=== PATIENT | female | born 1995 | race Caucasian/White ===

== ENCOUNTER 2021-06-23 19:09 | Observation (INO) | payer BC ==
[~2021-06-23] VITALS: Ht 150 cm; Wt 126.2 kg
[2021-06-23] MEDS ORDERED: PIPERACILLIN SODIUM/TAZOBACTAM 4.5 GM in NS (IVPB) 100 ML IV ONE (20:00)
[2021-06-23] MEDS ORDERED: VANCOMYCIN INJECTION 1,000 MG in NS (IVPB) 250 ML IV ONE (20:00)
--- NOTE | 2021-06-23 20:04 | ED Integumentary General ---
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 She states she has been dealing with skin infections for the past 2 months. She has been on intermittent antibiotics doxycycline, Rocephin and Keflex with very minimal improvement. Worsening rash over the past 2 days with purulent drainage swelling and increased pain. Patient has been on Accutane in the past to help with her skin condition but not currently take the medication secondary to wanting to start a family. She denies diabetes. She does report some sharp pains in the lower extremities which appears to be chronic. She denies any fever, chest pain, shortness of breath, nausea, vomiting. She does see a sales account director in [facility]. Allergies and Home Medications Allergies Coded Allergies: No Known Drug Allergies (Unverified , 06/23/21) Patient Home Medication List Home Medication List Reviewed: Yes Review of Systems Review of Systems Constitutional: No chills, No diaphoresis EENTM: No hearing loss, No blurred vision, No double vision Cardiovascular: No chest pain Gastrointestinal: No abdominal pain, No diarrhea, No nausea, No vomiting Genitourinary: No decreased output, No discharge Musculoskeletal: No back pain, No joint pain Skin: change in color, lesions, pruritus, rash All Other Systems Reviewed Negative Unless Noted: Yes Physical Exam Vital Signs Vital Signs - First Documented 06/23/21 19:55 Temp 35.9 Pulse 90 Resp 20 B/P (MAP) 127/75 (92) Pulse Ox 95 Capillary Refill : General Appearance: WD/WN, no apparent distress HEENT: PERRL/EOMI, normal ENT inspection, TMs normal, pharynx normal Neck: non-tender, full range of motion, supple Cardiovascular: regular rate, rhythm, no edema, no gallop, no JVD Respiratory: chest non-tender, lungs clear, normal breath sounds Gastrointestinal: normal bowel sounds, non tender, soft Back: normal inspection, no CVA tenderness Extremities: other (Bilateral leg swelling and redness. Purulent rash with crusting. 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 Purulent papular crusty rash to lower extremities with surrounding redness and swelling.) Progress/Results/Core Measures Results/Orders Lab Results Laboratory Tests Test 06/23/21 20:05 06/23/21 20:20 Range/Units Urine Color YELLOW Urine Clarity SL CLOUDY Urine pH 6.0 5-9 Urine Specific [place] >=1.030 1.016-1.022 Urine Protein NEGATIVE NEGATIVE Urine Glucose (UA) NEGATIVE NEGATIVE Urine Ketones NEGATIVE NEGATIVE Urine Nitrite NEGATIVE NEGATIVE Urine Bilirubin NEGATIVE NEGATIVE Urine Urobilinogen 0.2 < = 1.0 MG/DL Urine Leukocyte Esterase NEGATIVE NEGATIVE Urine RBC (Auto) NEGATIVE NEGATIVE Urine RBC RARE /HPF Urine WBC 0-2 /HPF Urine Squamous Epithelial Cells 10-25 H /HPF Urine Crystals NONE /LPF Urine Bacteria MODERATE H /HPF Urine Casts NONE /LPF Urine Mucus MODERATE H /LPF Urine Culture Indicated NO Urine Test NEGATIVE NEGATIVE White Blood Count 9.3 4.3-11.0 10^3/uL Red Blood Count 4.50 3.80-5.11 10^6/uL Hemoglobin 13.0 11.5-16.0 g/dL Hematocrit 40 35-52 % Mean Corpuscular Volume 88 80-99 fL Mean Corpuscular Hemoglobin 29 25-34 pg Mean Corpuscular Hemoglobin Concent 33 32-36 g/dL Red Cell Distribution Width 14.3 10.0-14.5 % Platelet Count 366 130-400 10^3/uL Mean Platelet Volume 9.5 9.0-12.2 fL Immature Granulocyte % (Auto) 0 % Neutrophils (%) (Auto) 55 42-75 % Lymphocytes (%) (Auto) 32 12-44 % Monocytes (%) (Auto) 7 0-12 % Eosinophils (%) (Auto) 5 0-10 % Basophils (%) (Auto) 1 0-10 % Neutrophils # (Auto) 5.1 1.8-7.8 10^3/uL Lymphocytes # (Auto) 2.9 1.0-4.0 10^3/uL Monocytes # (Auto) 0.6 0.0-1.0 10^3/uL Eosinophils # (Auto) 0.5 H 0.0-0.3 10^3/uL Basophils # (Auto) 0.1 0.0-0.1 10^3/uL Immature Granulocyte # (Auto) 0.0 0.0-0.1 10^3/uL Sodium Level 142 135-145 MMOL/L Potassium Level 3.7 3.6-5.0 MMOL/L Chloride Level 106 98-107 MMOL/L Carbon Dioxide Level 24 21-32 MMOL/L Anion Gap 12 5-14 MMOL/L Blood Urea Nitrogen 13 7-18 MG/DL Creatinine 1.05 0.60-1.30 MG/DL Estimat Glomerular Filtration Rate 76 BUN/Creatinine Ratio 12 Glucose Level 74 70-105 MG/DL Lactic Acid Level 1.39 0.50-2.00 MMOL/L Calcium Level 8.8 8.5-10.1 MG/DL Corrected Calcium 8.9 8.5-10.1 MG/DL Total Bilirubin 0.3 0.1-1.0 MG/DL Aspartate Amino Transf (AST/SGOT) 29 5-34 U/L Alanine Aminotransferase (ALT/SGPT) 22 0-55 U/L Alkaline Phosphatase 61 40-136 U/L C-Reactive Protein High Sensitivity 1.90 H 0.00-0.50 MG/DL Total Protein 7.7 6.4-8.2 GM/DL Albumin 3.9 3.2-4.5 GM/DL Serum Test, Qualitative NEGATIVE NEGATIVE My Orders Orders - SHERMAN FLORENCE Cbc With Automated Diff (06/23/21 19:59) Comprehensive Metabolic Panel (06/23/21 19:59) Blood Culture (06/23/21 19:59) Lactic Acid Analyzer (06/23/21 19:59) Hs C Reactive Protein (06/23/21 19:59) Piperacillin Sodium/Tazobactam (Zosyn Vi (06/23/21 20:00) Vancomycin Injection (Vancomycin Injecti (06/23/21 20:00) Wound Culture (06/23/21 19:59) Hcg,Qualitative Serum (06/23/21 20:04) Ua Culture If Indicated (06/23/21 20:04) Hcg,Qualitative Urine (06/23/21 20:11) Medications Given in ED Current Medications Medications Dose Ordered Sig/Christina Route Start Time Stop Time Status Last Admin Dose Admin Piperacillin Sod/ Tazobactam Sod 4.5 gm/Sodium Chloride 100 ml @ 200 mls/hr ONCE ONCE IV 06/23/21 20:00 06/23/21 20:29 DC 06/23/21 21:02 200 MLS/HR Vital Signs/I&O 06/23/21 06/23/21 19:55 20:31 Temp 35.9 Pulse 90 Resp 20 B/P (MAP) 127/75 (92) Pulse Ox 95 Departure Communication (PCP) Patient with ongoing cellulitis to the lower extremities. She is failed outpatient therapy. History of Darier disease and MRSA. She has crusting, redness and swelling of the lower extremity. Sloughing of the skin. She was afebrile. Normal white blood count. Slight elevated CRP. Was started on vancomycin and Zosyn here. She would likely benefit with IV antibiotics and wound care involvement. Patient was admitted to Dr. Lake the hospitalist accepts patient. Recommend Zosyn and vancomycin for IV antibiotics. Wound care performed here to help prevent the skin from ripping against the sheets. Impression Primary Impression: Cellulitis Disposition: ADMITTED INPATIENT Condition: Stable Admissions Decision to Admit Reason: Admit from ER (General) Decision to Admit/Date: June 23, 2021 Time/Decision to Admit Time: 19:00 Departure-Patient Inst. Referrals: NO,LOCAL PHYSICIAN (PCP/Family) Primary Care Physician SHERMAN FLORENCE June 23, 2021 20:04
[2021-06-23 20:10] LABS: BILIRUBIN,URINE NEGATIVE (NEGATIVE); CLARITY,URINE SL CLOUDY; COLOR,URINE YELLOW; GLUCOSE, URINE (UA) NEGATIVE (NEGATIVE); KETONES,URINE NEGATIVE (NEGATIVE); LEUKOCYTE ESTERASE ,URINE NEGATIVE (NEGATIVE); NITRITE,URINE NEGATIVE (NEGATIVE); PROTEIN,URINE NEGATIVE (NEGATIVE)
[2021-06-23 20:19] LABS: BACTERIA,URINE MODERATE /HPF; RBC,URINE RARE /HPF; WBC,URINE 0-2 /HPF
[2021-06-23 20:34] LABS: BASOPHILS # (AUTO) 0.1 10^3/uL (0.0-0.1); BASOPHILS % (AUTO) 1 % (0-10); EOSINOPHILS # (AUTO) 0.5 10^3/uL (0.0-0.3); EOSINOPHILS % (AUTO) 5 % (0-10); HEMATOCRIT 40 % (35-52); LYMPHOCYTES # (AUTO) 2.9 10^3/uL (1.0-4.0); LYMPHOCYTES % (AUTO) 32 % (12-44); MEAN CORPUSCULAR HEMOGLOBIN 29 pg (25-34); MEAN CORPUSCULAR HGB CONC 33 g/dL (32-36); MEAN CORPUSCULAR VOLUME 88 fL (80-99); MEAN PLATELET VOLUME 9.5 fL (9.0-12.2); MONOCYTES # (AUTO) 0.6 10^3/uL (0.0-1.0); MONOCYTES % (AUTO) 7 % (0-12); NEUTROPHILS # (AUTO) 5.1 10^3/uL (1.8-7.8); NEUTROPHILS % (AUTO) 55 % (42-75); PLATELET COUNT 366 10^3/uL (130-400); WHITE BLOOD COUNT 9.3 10^3/uL (4.3-11.0)
[2021-06-23 20:51] LABS: ALBUMIN 3.9 GM/DL (3.2-4.5); POTASSIUM 3.7 MMOL/L (3.6-5.0)
[2021-06-23 20:52] LABS: CALCIUM 8.8 MG/DL (8.5-10.1)
[2021-06-23 20:54] LABS: TOTAL PROTEIN 7.7 GM/DL (6.4-8.2)
[2021-06-23 20:55] LABS: BILIRUBIN,TOTAL 0.3 MG/DL (0.1-1.0)
[2021-06-23 20:57] LABS: CREATININE SERUM 1.05 MG/DL (0.60-1.30)
[2021-06-23] MEDS ORDERED: fentaNYL INJ 100 MCG/2 ML AMP IVP STA (21:29)
[2021-06-23 22:14] VITALS: BP 114/66
[2021-06-23] MEDS ORDERED: VANCOMYCIN 1500 MG/NS 500 ML IVPB IV ONE ×2 (23:30)
[2021-06-23] MEDS ORDERED: VANCOMYCIN 1000 MG/VIAL ONE (23:38)
[2021-06-23] MEDS ORDERED: NS IV 500 ML 500 ML ONE (23:38)
[2021-06-23] MEDS ORDERED: VANCOMYCIN 500 MG/VIAL IV ONE (23:38)
[2021-06-24] VITALS (7 sets, daily range): BP systolic 95–129; BP diastolic 50–80
[2021-06-24] MEDS: KETOROLAC 15 MG/ML VIAL IV PRN ×3 (00:09→22:20)
[2021-06-24] MEDS ORDERED: PIPERACILLIN SODIUM/TAZOBACTAM 4.5 GM in NS (IVPB) 100 ML IV SCH (03:00)
[2021-06-24] MEDS: CATHETER FLUSH 10 ML SYR IVP SCH ×3 (06:05→19:56)
[2021-06-24] MEDS: ONDANSETRON 4 MG/2 ML (SDV) Z0FRAN IVP PRN ×2 (08:01→16:56)
[2021-06-24] MEDS ORDERED: TR1C15 TOP (10:20)
[2021-06-24] MEDS ORDERED: HYDR-700 PO (10:20)
[2021-06-24] MEDS ORDERED: SERT-414 PO (10:20)
[2021-06-24] MEDS ORDERED: BUSP10TA95 PO (10:20)
[2021-06-24] MEDS ORDERED: PREN-51 PO (10:20)
[2021-06-24] MEDS ORDERED: IBUP-2185 PO (10:20)
[2021-06-24] MEDS ORDERED: CHOL10004 PO (10:20)
--- NOTE | 2021-06-24 11:17 | History & Physical-Hospitalist ---
History of Present Illness HPI/Chief Complaint Pt is a 25yoCF with a PMH of Darier disease who presented to the emergency department due to infected legs. She states she chronically deals with cellulitis and infections in her legs and had been seeing a fork truck driver near [place] for this. She was on Accutane which was controlling her symptoms well but she got off of it as she was hoping to get . Since that time she has had multiple infections and was on Keflex for 1 month. Last week she was treated with doxycycline and was doing well. Her last dose was on June 21 and then on the fourth she started to notice more weeping from her legs. This wor sened yesterday prompting her to seek evaluation in the emergency department. She was admitted for IV antibiotics. She reports feeling better today and is discharge home tomorrow. Source: patient Date Seen 06/24/21 Time Seen by a Provider: 09:45 Attending Physician Jarad Lake MD PCP No,Local Physician Referring Physician Date of Admission June 23, 2021 at 21:00 Home Medications & Allergies Home Medications Reviewed patient Home Medication Reconciliation performed by pharmacy medication reconciliations analytical lab technician and/or nursing. Patients Allergies have been reviewed. Allergies Allergies Coded Allergies No Known Drug Allergies (Unverified06/23/21) Past Xcuntwa-Flavtl-Djxnkn Hx Patient Social History Marrital Status: Employed/Student: employed Tobacco Use?: No Smoking Status: Never a Smoker Use of E-Cig and/or Vaping dev: No Substance use?: No Alcohol Use?: No Pt feels they are or have been: No Immunizations Up To Date First/Initial COVID19 Vaccinat: NO COVID VACCINE Current Status status: No status: No Advance Directives: No Communicates: Verbally Primary Language: [place]se Preferred Spoken Language: [place]orese Is interpretation needed?: No Past Medical History Darier Disease Family Medical History Reviewed Nursing Family Hx No Pertinent Family Hx Review of Systems Constitutional: No fever EENTM: no symptoms reported Respiratory: no symptoms reported Cardiovascular: no symptoms reported Gastrointestinal: no symptoms reported Genitourinary: no symptoms reported Musculoskeletal: no symptoms reported Skin: see HPI Psychiatric/Neurological: No Symptoms Reported Physical Exam Physical Exam Vital Signs Vital Signs - First Documented 06/23/21 06/23/21 19:55 22:14 Temp 35.9 Pulse 90 Resp 20 B/P (MAP) 127/75 (92) Pulse Ox 95 O2 Delivery Room Air Capillary Refill : Less Than 3 Seconds Height, Weight, BMI Height: '" Weight: lbs. oz. kg; 56.08 BMI Method: General Appearance: No Apparent Distress, WD/WN, Obese HEENT: PERRL/EOMI, Moist Mucous Membranes Neck: Normal Inspection, Supple Respiratory: Lungs Clear, No Accessory Muscle Use, No Respiratory Distress Cardiovascular: Regular Rate, Rhythm, No Murmur Gastrointestinal: Normal Bowel Sounds, Non Tender, Soft Extremity: Normal Capillary Refill, Other (lower extremities with dry and cracked skin and what appears to be thickened epidermis, weeping at cracks, overall erythematous appearance with some warmth) Neurologic/Psychiatric: Alert, Oriented x3, Normal Mood/Affect; No Aphasia, No Facial Droop Skin: Other (see extremity exam) Results Results/Procedures Labs Laboratory Tests 06/23/21 20:20 Patient resulted labs reviewed. Assessment/Plan Admission Diagnosis Cellulitis Admission Status: Observation Assessment and Plan Cellulitis Darier Disease Continue on IV abx Await cultures from ER Wound care consult Patient is agreeable to staying here for treatment with wound care before returning to home in [facility] Hopefully home tomorrow if doing well DVT ppx: Lovenox Diagnosis/Problems Diagnosis/Problems (1) Darier disease Status: Chronic (2) Cellulitis Status: Acute Qualifiers: Site of cellulitis: extremity Site of cellulitis of extremity: lower extremity Laterality: left Qualified Codes: L03.116 - Cellulitis of left lower limb EJ ALLEN MD June 24, 2021 11:17
[2021-06-24] MEDS ORDERED: HYPOCHLOROUS ACID/NaCl (VASHE) 250 ML IR PRN (11:30)
[2021-06-24] MEDS ORDERED: TRIAMCINOLONE 0.1% CR (KENALOG) 15 GM TUBE TOP PRN (11:30)
[2021-06-24] MEDS ORDERED: PATIENT MAY USE OWN MEDS, ALL MC SCH (11:30)
[2021-06-24] MEDS: VANCOMYCIN 1 GM/NS 250 ML IVPB IV SCH ×4 (11:49→23:44)
[2021-06-24] MEDS: ENOXAPARIN 40 MG/0.4 ML (LOVENOX) SYR SQ SCH (11:49)
[2021-06-24] MEDS: LACTOBACILLUS ACIDOPHILUS (PROBIOTIC) CAPSULE PO SCH ×2 (12:56→16:56)
[2021-06-24] MEDS: PIPERACILLIN SODIUM/TAZOBACTAM 4.5 GM in NS (IVPB) 100 ML IV SCH ×2 (12:57→21:00)
--- NOTE | 2021-06-24 13:44 | Wound Care Assessment ---
Wound Care Assessment Date Seen by Provider: June 24, 2021 Time Seen by Provider: 13:35 Chief Complaint Bilateral lower extremity cellulitis with weeping wounds HPI This pleasant 25 year old patient was admitted to the hospital with bilateral cellulitis. 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 She Has been treated by dermatology in the past with accutane with improvement in symptoms but is off this medication currently as she hopes to get in the near future. Sandee is also morbidly obese which likely contributes to her edema in addition to underlying infection. Her wound culture is preliminary but suspicious for pseudomonas. She has had whirlpool therapy suggested to her in the past. I would be hesitant to use whirlpool with current infection (it is no longer commonly used in chronic wound care practices). I agree with targeted antibiotic therapy. Once her wounds are healed and infection resolved, topical steroids/retinoids would be an option but I will defer this to her parquet floor layer's capable hands (she already has follow up arranged). I do think that Vashe soaks with gentle scrubbing would be a good option currently. Barrier ointment in periwound to protect from moisture and xeroform with gauze and roller gauze. Tubigrip to assist in keeping dressings in place. Elevation is certainly advisable as well as weight loss. Darier's disease Smoking Status: Never a Smoker Review of Systems General: Other (Obesity) Exam Vital Signs Date Time Temp Pulse Resp B/P (MAP) Pulse Ox O2 Delivery O2 Flow Rate FiO2 06/24/21 12:00 36.3 78 18 129/75 (93) 99 Room Air Capillary Refill : Less Than 3 Seconds General Appearance: WD/WN, no apparent distress, obese Cardiovascular: other (Edema) Extremities: pedal edema Neurologic/Psychiatric: alert, normal mood/affect, oriented x 3 Skin Problem Location: lower extremities Skin Character: drainage, erythema, thickening Bilateral lower extremities with eller/brown hyperkeratosis. Several areas with greasy plaques. Numerous partial thickness open areas with serous weeping. Underyling erythema consistent with cellulitis. Results Laboratory Tests 06/23/21 20:05: Urine Color YELLOW, Urine Clarity SL CLOUDY, Urine pH 6.0, Urine Specific [place] >=1.030, Urine Protein NEGATIVE, Urine Glucose (UA) NEGATIVE, Urine Ketones NEGATIVE, Urine Nitrite NEGATIVE, Urine Bilirubin NEGATIVE, Urine Urobilinogen 0.2, Urine Leukocyte Esterase NEGATIVE, Urine RBC (Auto) NEGATIVE, Urine RBC RARE, Urine WBC 0-2, Urine Squamous Epithelial Cells 10-25H, Urine Crystals NONE, Urine Bacteria MODERATEH, Urine Casts NONE, Urine Mucus MODERATEH , Urine Culture Indicated NO, Urine Test NEGATIVE 06/23/21 20:20: White Blood Count 9.3, Red Blood Count 4.50, Hemoglobin 13.0, Hematocrit 40, Mean Corpuscular Volume 88, Mean Corpuscular Hemoglobin 29, Mean Corpuscular Hemoglobin Concent 33, Red Cell Distribution Width 14.3, Platelet Count 366, Mean Platelet Volume 9.5, Immature Granulocyte % (Auto) 0, Neutrophils (%) (Auto) 55, Lymphocytes (%) (Auto) 32, Monocytes (%) (Auto) 7, Eosinophils (%) (Auto) 5, Basophils (%) (Auto) 1, Neutrophils # (Auto) 5.1, Lymphocytes # (Auto) 2.9, Monocytes # (Auto) 0.6, Eosinophils # (Auto) 0.5H, Basophils # (Auto) 0.1, Immature Granulocyte # (Auto) 0.0, Sodium Level 142, Potassium Level 3.7, Chloride Level 106, Carbon Dioxide Level 24, Anion Gap 12, Blood Urea Nitrogen 13, Creatinine 1.05, Estimat Glomerular Filtration Rate 76, BUN/Creatinine Ratio 12, Glucose Level 74, Lactic Acid Level 1.39, Calcium Level 8.8, Corrected Calcium 8.9, Total Bilirubin 0.3, Aspartate Amino Transf (AST/SGOT) 29, Alanine Aminotransferase (ALT/SGPT) 22, Alkaline Phosphatase 61, C-Reactive Protein High Sensitivity 1.90H, Total Protein 7.7, Albumin 3.9, Serum Test, Qualitative NEGATIVE 06/24/21 12:30: D-Dimer 1.05H Microbiology 06/23/21 Gram Stain, Resulted Pending 06/23/21 Wound Culture - Preliminary, Resulted Gram Negative Bacillus 1 Gram Negative Bacillus 1#2 Microbiology 06/23/21 Gram Stain, Resulted Pending 06/23/21 Wound Culture - Preliminary, Resulted Gram Negative Bacillus 1 Gram Negative Bacillus 1#2 Assessment/Plan/Dx Assessment: 1. Cellulitis (bilateral) 2. Darier's disease 3. Morbid obesity Plan: 1. Agree with antibiotic therapy to be targeted to wound culture once finalized 2. Elevation of bilateral lower extremities above level of heart as much as possible 3. Vashe soaks to bilateral lower extremities daily. Gently scrub with wash cloth (as tolerated due to pain) daily following Vashe soaks 4. Barrier ointment to periwound 5. Apply Xeroform to open areas, cover with roller gauze and secure with medipore tape daily. May use tubigrip to secure dressings further if needed 6. I would not advise whirlpool treatment with active infection (especially with pseudomonas) 7. I would not advise topical steroids with active infection and open wounds. Once cellulitis treated and wounds improve, defer topical steroids or oral/topical retinoids to parquet floor layer for initiation. MIGUEL ÁNGEL REYNOLDS MD June 24, 2021 13:44
[2021-06-24] MEDS ORDERED: ACETAMINOPHEN 500 MG TAB (TYLENOL) PO PRN (18:30)
[2021-06-24] MEDS: busPIRone 10 MG (BUSPAR) TAB PO SCH (19:54)
[2021-06-24] MEDS ORDERED: hydrOXYzine (VISTARIL/ATARAX) 25 MG capsule/tablet PO SCH (21:00)
[2021-06-24] MEDS ORDERED: NON-FORMULARY MEDICATION 1 EA EA (Hydroxyzine HCl 25 MG) PO SCH (21:00)
[2021-06-24] MEDS ORDERED: SERTRALINE 100 MG (ZOLOFT) TAB PO SCH (21:00)
[2021-06-25 03:44] VITALS: BP 107/63
[2021-06-25] MEDS: PIPERACILLIN SODIUM/TAZOBACTAM 4.5 GM in NS (IVPB) 100 ML IV SCH ×3 (05:43→12:38)
[2021-06-25] MEDS: CATHETER FLUSH 10 ML SYR IVP SCH ×2 (05:44→12:24)
[2021-06-25] MEDS: ONDANSETRON 4 MG/2 ML (SDV) Z0FRAN IVP PRN (05:52)
[2021-06-25 05:59] LABS: HEMATOCRIT 36 % (35-52); HEMOGLOBIN 11.8 g/dL (11.5-16.0); MEAN CORPUSCULAR HEMOGLOBIN 29 pg (25-34); MEAN CORPUSCULAR HGB CONC 33 g/dL (32-36); MEAN CORPUSCULAR VOLUME 89 fL (80-99); MEAN PLATELET VOLUME 9.9 fL (9.0-12.2); PLATELET COUNT 289 10^3/uL (130-400); WHITE BLOOD COUNT 9.3 10^3/uL (4.3-11.0)
[2021-06-25 06:10] LABS: POTASSIUM 4.1 MMOL/L (3.6-5.0)
[2021-06-25 06:11] LABS: CALCIUM 9.2 MG/DL (8.5-10.1)
[2021-06-25 06:15] LABS: CREATININE SERUM 1.91 MG/DL (0.60-1.30)
[2021-06-25 07:32] VITALS: BP 125/84
[2021-06-25] MEDS: busPIRone 10 MG (BUSPAR) TAB PO SCH (08:28)
[2021-06-25] MEDS: LACTOBACILLUS ACIDOPHILUS (PROBIOTIC) CAPSULE PO SCH ×2 (08:28→12:21)
[2021-06-25] MEDS ORDERED: VITAMIN D3 25 MCG (1,000 UNITS) TABLET PO SCH (09:00)
[2021-06-25] MEDS ORDERED: TROUGH ORDER-PHARMACY XX ONE (11:00)
[2021-06-25] MEDS ORDERED: BISM1BAN TP (11:35)
[2021-06-25] MEDS ORDERED: CEFD300C3 PO (11:35)
[2021-06-25] MEDS ORDERED: ACHD5005 PO (11:35)
[2021-06-25] MEDS ORDERED: SODI475I IR (11:35)
[2021-06-25] MEDS ORDERED: LEVO750T39 PO (11:35)
--- NOTE | 2021-06-25 11:39 | Discharge Inst-Simple/Standard ---
Discharge Inst-Standard Discharge Medications New, Converted or Re-Newed RX: Transmitted to Pharmacy Patient Instructions/Follow Up Plan of Care/Instructions/FU: Please continue to take your medications as written. Please follow up with your PCP to follow up this hospital stay. Activity as Tolerated: Yes Discharge Diet: No Restrictions Return to The Hospital For: Chest pain, shortness of breath, fever, increasing drainage on your legs or redness, if you feel you are getting worse. EJ ALLEN MD June 25, 2021 11:39
--- NOTE | 2021-06-25 11:42 | Discharge Summary ---
Diagnosis/Chief Complaint Date of Admission June 23, 2021 at 21:00 Date of Discharge Discharge Date: June 25, 2021 Admission Diagnosis Cellulitis Primary Care No,Local Physician Discharge Diagnosis (1) Darier disease Status: Chronic (2) Cellulitis Status: Acute Discharge Summary Procedures/Consulations Wound Care- Dr Vela Discharge Physical Exam Allergies: Coded Allergies: No Known Drug Allergies (Unverified , 06/23/21) Vitals & I&Os Vital Signs Date Time Temp Pulse Resp B/P (MAP) Pulse Ox O2 Delivery O2 Flow Rate FiO2 06/25/21 07:32 36.5 88 20 125/84 (98) 92 Room Air General Appearance: No Apparent Distress, Obese Respiratory: Lungs Clear Cardiovascular: Regular Rate, Rhythm Hospital Course Patient was admitted to the hospital due to cellulitis of her lower extremities from complications of Darier disease. She was treated with IV antibiotics and did well. She was transitioned to oral antibiotics per cultures. She was seen by wound care and will follow-up with them as an outpatient. Labs (last 24 hrs) Laboratory Tests 06/24/21 12:30: D-Dimer 1.05H 06/25/21 05:38: White Blood Count 9.3, Red Blood Count 4.07, Hemoglobin 11.8, Hematocrit 36, Mean Corpuscular Volume 89, Mean Corpuscular Hemoglobin 29, Mean Corpuscular Hemoglobin Concent 33, Red Cell Distribution Width 14.2, Platelet Count 289, Mean Platelet Volume 9.9, Sodium Level 143, Potassium Level 4.1, Chloride Level 110H, Carbon Dioxide Level 23, Anion Gap 10, Blood Urea Nitrogen 17, Creatinine 1.91H, Estimat Glomerular Filtration Rate 37, BUN/Creatinine Ratio 9, Glucose Level 94, Calcium Level 9.2 06/25/21 11:00: Vancomycin Level Trough 23.9H Microbiology 06/23/21 Blood Culture - Preliminary, Resulted No growth 06/23/21 Gram Stain - Final, Resulted 06/23/21 Wound Culture - Preliminary, Resulted Mixed Bacterial Aggie Gram Negative Bacillus 1 Gram Negative Bacillus 1#2 Patient resulted labs reviewed. Pending Labs Laboratory Tests 06/25/21 05:38: White Blood Count 9.3, Red Blood Count 4.07, Hemoglobin 11.8, Hematocrit 36, Mean Corpuscular Volume 89, Mean Corpuscular Hemoglobin 29, Mean Corpuscular Hemoglobin Concent 33, Red Cell Distribution Width 14.2, Platelet Count 289, Mean Platelet Volume 9.9, Sodium Level 143, Potassium Level 4.1, Chloride Level 110, Carbon Dioxide Level 23, Anion Gap 10, Blood Urea Nitrogen 17, Creatinine 1.91, Estimat Glomerular Filtration Rate 37, BUN/Creatinine Ratio 9, Glucose Level 94, Calcium Level 9.2 06/25/21 11:00: Vancomycin Level Trough 23.9 Discussion & Recommendations Discharge Planning: >30 minutes discharge planning Discharge Home Medications: Active Scripts Active Hydrocodone-Acetamin 5-325 mg (Hydrocodone/Acetaminophen) 5 Mg-325 Mg Tablet 1 Tab PO Q4H PRN Xeroform Petrolatum Dress (Bismuth Tribromoph/Petrolatum) 4" X 4" Bandage Each TP BID Place twice a day on wounds after cleansing Cefdinir 300 Mg Capsule 300 Mg PO BID Levofloxacin 750 Mg Tablet 750 Mg PO DAILY Vashe Wound Therapy Solution (Sodium Chlor/Hypochlorous Acid) 0.033 % Irrig.soln 0 Ml IR DAILY PRN Reported Triamcinolone Acetonide 0.1% Cream (Triamcinolone Acet) 0.1 % Cr 1 Applic TOP UD PRN Vitamin D3 (Cholecalciferol (Vitamin D3)) 25 Mcg (1000 Unit) Tablet 25 Mcg PO DAILY Prenatabs Rx Tablet ( Vit #76/Iron,Carb/FA) 29 Mg Iron-1 Mg Tablet 1 Each PO DAILY Ibuprofen 200 Mg Capsule 400-600 Mg PO Q8H PRN Hydroxyzine HCl 25 Mg Tablet 25 Mg PO HS Sertraline HCl 100 Mg Tablet 100 Mg PO HS Buspirone HCl 10 Mg Tablet 20 Mg PO BID TAKES 2 (10MG) TABS Instructions to patient/family Please see electronic discharge instructions given to patient. Problem Qualifiers (1) Cellulitis: Site of cellulitis: extremity Site of cellulitis of extremity: lower extremity Laterality: left Qualified Codes: L03.116 - Cellulitis of left lower limb EJ ALLEN MD June 25, 2021 11:42
[2021-06-25 11:52] VITALS: BP 125/84
[2021-06-25] MEDS ORDERED: VANCOMYCIN 1 GM/NS 250 ML IVPB IV SCH ×4 (12:00→23:55)
[2021-06-25] MEDS: ENOXAPARIN 40 MG/0.4 ML (LOVENOX) SYR SQ SCH (12:12)
[2021-06-25 16:08] VITALS: BP 125/84
[2021-06-25] MEDS ORDERED: VANCOMYCIN 500 MG/NS 100 ML IV SCH ×2 (23:55)
[2021-06-27] MEDS ORDERED: TROUGH ORDER-PHARMACY XX NR (23:00)
== END 2021-06-25 16:00 | disposition home or self-care (01) ==
LOC: ER 19:13 → 4TH 21:00
PROVIDERS: ADMIT Internal Medicine; ATTEND Internal Medicine
DX: I70.203 Unspecified atherosclerosis of native arteries of extremities, bilateral legs (principal); E66.01 Morbid (severe) obesity due to excess calories; Q82.8 Other specified congenital malformations of skin; Z68.43 Body mass index [BMI] 50.0-59.9, adult
CPT/HCPCS: 36415; 80048; 80053; 80202; 81000; 83605; 84703; 85025; 85027; 85379; 86141; 87040; 87070; 87077; 87081; 87186; 87205; 93005; 96360; 96372; 96374; 96375; 96376; G0378

== ENCOUNTER → 2021-06-30 | Outpatient (CLI) | payer BC ==
[~2021-06-30] MED LIST: ACHD5005 PO; BISM1BAN TP; BUSP10TA95 PO; CEFD300C3 PO; CHOL10004 PO; HYDR-700 PO; IBUP-2185 PO; LEVO750T39 PO; PREN-51 PO; SERT-414 PO; SODI475I IR; TR1C15 TOP
== END ==
LOC: WOUNDCARE 09:10
PROVIDERS: ATTEND Family Medicine
DX: L30.8 Other specified dermatitis (principal); L03.115 Cellulitis of right lower limb; L03.116 Cellulitis of left lower limb; I89.0 Lymphedema, not elsewhere classified; E66.01 Morbid (severe) obesity due to excess calories
CPT/HCPCS: 99214